=== PATIENT | female | born 1995 | race Caucasian/White ===

== ENCOUNTER → 2021-06-10 | Outpatient (CLI) | payer BC ==
[~2021-06-10] MED LIST: GADOTERATE 0.5 MMOL/ML (CLARISCAN) 15 ML VIAL IV ONE
--- NOTE | 2021-06-10 16:58 | Diagnostic Imaging Report ---
PROCEDURE: MR imaging of the brain with and without contrast. TECHNIQUE: Multiplanar, multisequence MR imaging of the brain was performed with and without contrast. DATE: June 10, 2021. COMPARISON: None. HISTORY: 25-year-old female, swelling in the back of the head. No known injury. FINDINGS: There is no restricted diffusion. There are no areas of abnormal intracranial susceptibility. There is a normal variant cavum cavum septum pellucidum and cavum vergae. There is no hydrocephalus. There is a CSF signal area to the left of midline in the posterior fossa with associated prominent cortical thinning of the left occipital bone of the skull. There is no contrast enhancement. This measures 1.5 x 1.2 x 0.7 cm in size. There is no acute intracranial hemorrhage. There is no mass effect or midline shift. There is no otherwise noted abnormal intracranial signal. There is no abnormal intracranial enhancement. There is normal aeration of the visualized paranasal sinuses and mastoid air cells. IMPRESSION: 1. 1.5 x 1.2 x 0.7 cm CSF signal lesion to the left of midline in the inferior aspect of the left posterior fossa with associated long-standing appearing prominent cortical thinning of the left occipital bone of the skull. 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 2. Additional intracranial assessment is grossly unremarkable. Dictated by: Dictated on workstation # [id number]
== END ==
LOC: RAD 13:15
PROVIDERS: ATTEND Nurse Practitioner Family
DX: G93.9 Disorder of brain, unspecified (principal); R20.2 Paresthesia of skin; L65.8 Other specified nonscarring hair loss; R45.86 Emotional lability; F41.1 Generalized anxiety disorder; F41.0 Panic disorder [episodic paroxysmal anxiety]; R22.0 Localized swelling, mass and lump, head
CPT/HCPCS: 70553

== ENCOUNTER → 2021-06-14 | Outpatient (CLI) | payer BC ==
--- NOTE | 2021-06-14 13:48 | Diagnostic Imaging Report ---
INDICATION: Encephalocele, mass posterior head. TECHNIQUE: Multiple real-time grayscale sonographic images were obtained of the posterior scalp. CORRELATION STUDY: None. FINDINGS: Ultrasound imaging is performed of the soft tissues of the scalp posterior head in the area of palpable concern. There is no suggestion for discrete solid or cystic mass. IMPRESSION: 1. No sonographic evidence for a discrete mass at the area of palpable concern, posterior scalp. Dictated by: Dictated on workstation # [id number]
== END ==
LOC: RAD 12:30
PROVIDERS: ATTEND Nurse Practitioner Family
DX: Q01.9 Encephalocele, unspecified (principal)
CPT/HCPCS: 76536